=== PATIENT | female | born 1990 | race African-American/Black ===

== ENCOUNTER 2016-12-06 12:00 | Inpatient (IN) | payer OTHER ==
[~2016-12-06] VITALS: Ht 154.9 cm; Wt 52.6 kg
--- NOTE | ~2016-12-06 | HP ---
Unit #: [id number] #: [id number] Patient: KALI LOPEZ [id number] [facility] [address] [place] [address] [id number] MR#: [id number] NAME: KALI LOPEZ ROOM: [facility] Age: 26 Sex: F Admission Date: 12/06/2016 : 1990 Attending Physician: Giovanni Hernandez M.D. Admitting Physician: Giovanni Hernandez M.D. Primary Care Physician: Primary Care Physician No HISTORY AND PHYSICAL HISTORY OF PRESENT ILLNESS The patient is a 26-year-old female, who has been admitted to [facility] for depression, and she has a history of suicidal ideation. PAST MEDICAL HISTORY 1. Depression. 2. Suicidal ideation. PAST SURGICAL HISTORY None. ALLERGIES No known allergies. HOME MEDICATIONS None. SOCIAL HISTORY The patient endorsed occasional marijuana use, occasional alcohol use. She does smoke cigarettes. FAMILY HISTORY Medically noncontributory. REVIEW OF SYSTEMS CONSTITUTIONAL: Denies fever or chills. HEENT: Denies sore throat, ear pain or runny nose. CARDIOVASCULAR: Denies chest pain, irregular heart rhythm or palpitations. CHEST: Denies shortness of breath or cough. No hemoptysis. GASTROINTESTINAL: Denies nausea, vomiting, diarrhea or chronic constipation. ENDOCRINE: Denies history of increased thirst or urination. No recent significant weight loss or gain. GENITOURINARY: Denies dysuria, frequency, or hematuria. SKIN: Denies any rashes. HEMATOLOGIC: Denies history of increased bleeding or bruising. MUSCULOSKELETAL: Denies any hot, swollen joints. No generalized muscle pain. NEUROLOGIC: Denies problems with vision or speech. No frequent, severe headaches. No numbness, tingling or weakness in any extremities. Denies loss of bladder or bowel control. PHYSICAL EXAMINATION Unit #: [id number] #: [id number] Patient: KALI LOPEZ GENERAL APPEARANCE: The patient is awake, alert, and in no acute distress. VITAL SIGNS: Temperature 98.7, heart rate 110, respirations 16, blood pressure 121/78. She is 5 feet 1 inch and weighs 116 pounds. HEENT: Head: Atraumatic and normocephalic. Pupils are equal, round, and reactive. Extraocular movements are intact. No discharge from ears or nares. She wears glasses. NECK: Supple. Trachea is midline. HEART: Regular rate and rhythm. LUNGS: Clear. ABDOMEN: Soft, nontender, and nondistended. : Not done. SKIN: Warm, dry, and no unusual rashes or lesions. EXTREMITIES: No clubbing, edema, or cyanosis. NEUROLOGIC: Cranial Nerves: II through XII: Intact. No focal deficits. Sensory and Motor Function: Grossly normal. Motor: Moves all extremities well. Coordination: Gait is normal. Deep Tendon Reflexes: Intact. IMPRESSION Psychiatric admission. RECOMMENDATIONS Psychiatric, will be per psychiatry. MEDICAL I see no contraindications to participating in facility's activities. MEDICAL PROGNOSIS Fair. MEDICAL CONDITION Stable. Dictated by... Litzy Bang A.P.R.N. for Carla Maldonado TD: 12/07/2016 09:52 JOB #: [id number] HISTORY AND PHYSICAL Page 1 of 1 X Litzy Bang [employer] X HISTORY AND PHYSICAL
--- NOTE | ~2016-12-06 | PA ---
Unit #: [id number] #: [id number] Patient: KALI LOPEZ [id number] [facility] [address] [place] [address] [id number] MR#: [id number] NAME: KALI LOPEZ ROOM: [facility] Age: 26 Sex: F Admission Date: 12/06/2016 : 1990 Date of Assessment: 12/07/2016 Attending Physician: Giovanni Hernandez M.D. Admitting Physician: Giovanni Hernandez M.D. Primary Care Physician: Primary Care Physician No PSYCHIATRIC ASSESSMENT IDENTIFYING INFORMATION The patient is a 26-year-old white female admitted after she had voiced suicidal ideation to her therapist. CHIEF COMPLAINT None given. INFORMANT Patient and chart, reliability good. HISTORY OF PRESENT ILLNESS The patient is a 26-year-old white female referred by her therapist after she had sent an e-mail containing suicidal threats. The patient reports that her sister was killed in July, and this has been a source of increasing depression and anxiety since the patient reports loss of motivation, and the patient states that she has been researching means of suicide on the internet. The patient is currently followed by a therapist. She does have a history of a failed trial of Zoloft though she reports that her compliance with that medication was poor. This was prescribed following the of a 4-year-old child. The patient is currently reporting ongoing thoughts of suicide but is rather vague and evasive during interview. She lives with her child and the child's father. She denies recent changes in sleep or appetite. PAST PSYCHIATRIC HISTORY As above. PAST MEDICAL HISTORY Noncontributory. MEDICATIONS None. ALLERGIES None. FAMILY HISTORY Noncontributory. SOCIAL HISTORY The patient lives with her common-law and [id number] child. She states that she is one semester from her degree at [employer] and works in an insurance agency. Unit #: [id number] #: [id number] Patient: KALI LOPEZ MENTAL STATUS EXAMINATION Examination at this time reveals the patient to be a well-developed well-nourished white female appearing her stated age. She is in no apparent physical distress at the time of the examination. She is awake, alert, and oriented in all spheres. Her mood is mildly dysphoric, her affect congruent. Speech is generally well coherent. There are no gross deficits in memory or cognition noted. Intelligence is judged to be in the average range based on fund of knowledge. The patient is cooperative throughout the interview. She is currently endorsing positive suicidal ideation. She denies homicidal ideation. She denies any psychotic symptoms. Her judgment and insight appear to be intact. ASSETS AND LIABILITIES The patient's assets: Motivation for change. Liabilities: Lack of resources. DIAGNOSTIC IMPRESSION 1. Major depressive disorder, recurrent, moderate. 2. Cannabis use disorder, rule out borderline traits. TREATMENT PLAN The patient remains hospitalized for safety and stabilization. We will begin a trial of Lexapro 5 mg daily in hopes of addressing the patient's depressive symptoms. The importance of consistent compliance with medication was discussed with the patient during today's interview. ESTIMATED LENGTH OF STAY 3 to 5 days. Followup will take place under the care of previous providers in the [facility] area. Dictated by... Giovanni Hernandez M.D. Michael TD: 12/07/2016 14:33 JOB #: [id number] PSYCHIATRIC ASSESSMENT Page 1 of 1 X Giovanni Hernandez MD X PSYCHIATRIC ASSESSMENT
--- NOTE | ~2016-12-06 | DS ---
Unit #: [id number] #: [id number] Patient: KALI LOPEZ [id number] [facility] [address] [place] [address] [id number] MR#: [id number] NAME: KALI LOPEZ ROOM: [facility] Age: 26 Sex: F Admission Date: 12/06/2016 : 1990 Discharge Date: 12/08/2016 Attending Physician: Giovanni Hernandez M.D. Primary Care Physician: Primary Care Physician No DISCHARGE SUMMARY REASON FOR ADMISSION The patient is a 26-year-old white female, admitted with increasing suicidal ideation. HOSPITAL COURSE The patient was admitted to the [address] [place] [address] unit and placed on suicide precautions. She agreed to a trial of low-dose Lexapro and tolerated the initiation of medication without complaint. She was much, much brighter when seen by this physician on 12/08/2016. At that time, she denied suicidal ideation and expressed future orientation. She requested discharge and it was so ordered. FINAL DIAGNOSES Major depressive disorder, recurrent, moderate, borderline traits. DISPOSITION ON DISCHARGE The patient is discharged on the following medications: Lexapro 5 mg at 6:00 p.m. for depression. DISCHARGE INSTRUCTIONS No dietary or physical restrictions were placed on the patient at the time of discharge. FOLLOWUP Followup will take place through the auspices of community mental health resources in the [place], [place] area. PROGNOSIS Considered fair. Dictated by... Giovanni Hernandez M.D. PRADIP/mary kate TD: 12/11/2016 08:36 JOB #: [id number] Unit #: [id number] #: [id number] Patient: KALI LOPEZ DISCHARGE SUMMARY Page 1 of 1 X Giovanni Hernandez MD X DISCHARGE SUMMARY
[2016-12-07 09:41] LABS: BASOPHIL% 0.3 % (0-2.5); EOSINOPHIL# 0.4 X10e3 (0-0.7); EOSINOPHIL% 5.4 % (0.0-7.0); HEMATOCRIT 39.1 % (35.0-45.0); HEMOGLOBIN 13.4 gm/dL (12.0-16.0); LYMPHOCYTE# 1.4 X10e3 (1.0-3.5); LYMPHOCYTE% 20.4 % (17.0-45.0); MEAN CELL VOLUME 90.4 FL (83-96); MEAN CORPUSCULAR HEMOGLOBIN 31.1 PG (28-34); MEAN CORPUSCULAR HGB CONC 34.4 g/dL (30-36); MEAN PLATELET VOLUME 7.8 FL (6.5-11.5); MONOCYTE# 0.3 X10e3 (0-1.0); NEUTROPHIL# 4.8 X10e3 (1.5-7.1); NEUTROPHIL% 68.9 % (40-75); PLATELET COUNT 268 X10e3 (140-420); RED BLOOD COUNT 4.32 X10e (3.90-5.30); RED CELL DISTRIBUTION WIDTH 13.1 % (11.0-15.5); WHITE BLOOD COUNT 6.9 X10e3 (4.0-10.5)
[2016-12-07 09:43] LABS: DIFF IND NO
[2016-12-07 10:26] LABS: ALBUMIN SERUM 4.2 g/dL (3.5-5.0); BILIRUBIN,TOTAL 1.1 mg/dL (0.2-2.0); BUN/CREATININE RATIO 25.71; CALCIUM SERUM 9.4 mg/dL (8.4-10.2); CREATININE SERUM 0.7 mg/dL (0.6-1.4); GLOM FILT RATE Estimated 140.5 mL/min (>60); POTASSIUM 4.9 mmol/L (3.5-5.1)
[2016-12-07 13:19] LABS: AMPHETAMINE NEG (NEG); BARBITURATES NEG (NEG); BENZODIAZEPINES NEG (NEG); COCAINE NEG (NEG); MARIJUANA NEG (NEG); OPIATES NEG (NEG); TRICYCLIC ANTIDEPRESSANTS NEG (NEG); U METHADONE NEG (NEG)
[2016-12-07 14:00] LABS: URINE APPEARANCE CLEAR; URINE BLOOD 1+ (NEG); URINE COLOR DK YELLOW; URINE GLUCOSE NEG (NEG); URINE KETONE 2+ (NEG); URINE LEUKOCYTE ESTERASE NEG (NEG); URINE NITRATE NEG (NEG); URINE PH 5.5 (5-8); URINE PROTEIN NEG (NEG); URINE SPECIFIC GRAVITY 1.024 (1.003-1.035); URINE UROBILINOGEN 0.2 MG/DL (NEG)
[2016-12-07 14:03] LABS: URINE BACTERIA AUWI NEG (NEGATIVE); URINE SQUAMOUS EPITHELIAL CELL OCC /[HPF]
[2016-12-07 14:10] LABS: URINE BILIRUBIN POS (NEG)
== END 2016-12-08 15:50 | disposition home or self-care (01) | DRG 885 ==
LOC: P2L 15:39
PROVIDERS: Specialist
DX: F33.1 Major depressive disorder, recurrent, moderate (principal); R45.851 Suicidal ideations; F12.10 Cannabis abuse, uncomplicated; F17.210 Nicotine dependence, cigarettes, uncomplicated
CPT/HCPCS: 80053; 80307; 81003; 84703; 85025